=== PATIENT | female | born 1985 | race Caucasian/White ===

== ENCOUNTER 2020-01-04 09:58 | Inpatient (IN) | payer OTHER ==
[~2020-01-04] VITALS: Ht 167.6 cm; Wt 107.0 kg
[~2020-01-04 09:58] MED LIST: DSS100 PO; IBUP-2071 PO; PREN1TAB80 PO
[2020-01-04] MEDS ORDERED: RINGERS SOLUTION,LACTATED 1,000 ML IV PRN (10:05)
[2020-01-04] MEDS ORDERED: OXYGEN THERAPY IH SCH (10:15)
[2020-01-04] MEDS ORDERED: CITRIC ACID/SODIUM CITRATE 30 ML SOLUTION UDCUP PO PRN (10:15)
[2020-01-04] MEDS ORDERED: METOCLOPRAMIDE HCL 5 MG/ML 2 ML VIAL IVP PRN (10:15)
[2020-01-04] MEDS ORDERED: PREN-217 PO (10:33)
[2020-01-04] MEDS ORDERED: OXYM30SP27 NASAL (10:33)
[2020-01-04] MEDS ORDERED: LEVO125 PO (10:33)
[2020-01-04] MEDS ORDERED: DICL50TA9 PO (10:34)
[2020-01-04 10:46] VITALS: BP 122/71
[2020-01-04] MEDS ORDERED: RINGERS SOLUTION,LACTATED 1,000 ML IV SCH (11:33)
[2020-01-04] MEDS ORDERED: DOCU-275 PO (11:44)
[2020-01-04] MEDS ORDERED: MISOPROSTOL 25 MCG TABLET PO SCH (11:45)
[2020-01-04] MEDS ORDERED: MISOPROSTOL 50 MCG TABLET PEG SCH (11:45)
[2020-01-04 12:00] LABS: BASOPHILS % (AUTO) 0.4 % (0.0-2.0); EOSINOPHILS % (AUTO) 0.2 % (1.0-6.0); HEMATOCRIT 35.2 % (36-46); HEMOGLOBIN 11.8 g/dL (12.0-16.0); LYMPHOCYTES # (AUTO) 1.6 K/uL (1.0-4.8); MEAN CORPUSCULAR HEMOGLOBIN 29.7 pg (26.0-34.0); MEAN CORPUSCULAR HGB CONC 33.6 G/dL (31.0-37.0); MEAN CORPUSCULAR VOLUME 89 fL (80-100); MONOCYTES # (AUTO) 0.6 K/uL (0.1-1.0); MONOCYTES % (AUTO) 6.2 % (2.0-9.0); NEUTROPHILS # (AUTO) 6.9 K/uL (1.8-7.7); NEUTROPHILS % (AUTO) 75.2 % (40.0-70.0); PLATELET COUNT (AUTO)-OB 247 K/uL (150-450); RED BLOOD CELL COUNT(AUTO) 3.98 MIL/uL (4.00-5.20); RED CELL DISTRIBUTION WIDTH 15.6 % (11.5-14.5)
[2020-01-04] MEDS: RINGERS SOLUTION,LACTATED 1,000 ML IV SCH ×3 (12:01→22:17)
[2020-01-04] MEDS ORDERED: LIDOCAINE/PF 2% 5 ML VIAL ONE (15:44)
[2020-01-04] MEDS ORDERED: ROPIVACAINE HCL/PF 0.2% 100 ML ED ONE (15:44)
[2020-01-04] MEDS ORDERED: DiphenhydrAMINE HCL 50 MG/ML VIAL IVP PRN (16:00)
[2020-01-04] MEDS ORDERED: NALBUPHINE HCL 10 MG/ML VIAL IVP PRN (16:00)
[2020-01-04] MEDS ORDERED: ROPIVACAINE HCL/PF 0.2% 100 ML ED PRN (16:00)
[2020-01-04] MEDS ORDERED: ONDANSETRON HCL 4 MG/2 ML VIAL IVP PRN (16:00)
[2020-01-04] MEDS ORDERED: OXYTOCIN 30 UNITS/LACT RINGERS 500 ML IV PRN (16:28)
[2020-01-04] MEDS ORDERED: OXYTOCIN 30 UNITS/LACT RINGERS 500 ML IV ONE (18:39)
[2020-01-04] MEDS ORDERED: LIDOCAINE/PF 1% 30 ML VIAL INJ PRN (18:45)
[2020-01-04] MEDS ORDERED: FentaNYL CITRATE-PF 100 MCG/2 ML VIAL IVP PRN (18:45)
[2020-01-04] MEDS ORDERED: CARBOPROST TROMETHAMINE 250 MCG/ML AMP IM PRN (18:45)
[2020-01-04] MEDS ORDERED: METHYLERGONOVINE MALEATE 0.2 MG/ML VIAL IM PRN (18:45)
[2020-01-04] MEDS ORDERED: MINERAL OIL 30 ML UDCUP VG ONE (19:00)
[2020-01-05] MEDS: RINGERS SOLUTION,LACTATED 1,000 ML IV SCH (01:00)
[2020-01-05] MEDS ORDERED: RINGERS SOLUTION,LACTATED 1,000 ML IV ONE (02:58)
[2020-01-05] MEDS ORDERED: LANOLIN 7 GM OINTMENT TP PRN (03:00)
[2020-01-05] MEDS ORDERED: MEASLES/MUMPS/RUBELLA VACCINE, LIVE 0.5 ML/VIAL SQ ONE (03:00)
[2020-01-05] MEDS ORDERED: GLYCERIN/WITCH HAZEL LEAF 40 PADS JAR TP PRN (03:00)
[2020-01-05] MEDS ORDERED: BENZOCAINE 20%/MENTHOL 56 GM SPRAY CANISTER TP PRN (03:00)
[2020-01-05] MEDS: OxyCODONE HCL/ACETAMINOPHEN 5-325 MG TABLET PO PRN ×3 (03:33→15:42)
[2020-01-05] MEDS: IBUPROFEN 600 MG TABLET PO PRN ×3 (03:33→16:36)
[2020-01-05] MEDS: LEVOTHYROXINE SODIUM 125 MCG TABLET PO SCH (06:25)
[2020-01-05] MEDS: MAGNESIUM HYDROXIDE SUSPENSION 30 ML UDCUP PO SCH ×2 (10:00→21:52)
[2020-01-06] MEDS: IBUPROFEN 600 MG TABLET PO PRN ×2 (01:35→08:29)
[2020-01-06 05:27] LABS: BASOPHILS % (AUTO) 0.5 % (0.0-2.0); EOSINOPHILS % (AUTO) 1.3 % (1.0-6.0); HEMOGLOBIN 10.1 g/dL (12.0-16.0); LYMPHOCYTES # (AUTO) 2.2 K/uL (1.0-4.8); MEAN CORPUSCULAR HGB CONC 33.7 G/dL (31.0-37.0); MEAN CORPUSCULAR VOLUME 89 fL (80-100); MONOCYTES # (AUTO) 0.6 K/uL (0.1-1.0); MONOCYTES % (AUTO) 6.5 % (2.0-9.0); NEUTROPHILS # (AUTO) 6.9 K/uL (1.8-7.7); NEUTROPHILS % (AUTO) 69.7 % (40.0-70.0); PLATELET COUNT (AUTO)-OB 201 K/uL (150-450); RED BLOOD CELL COUNT(AUTO) 3.37 MIL/uL (4.00-5.20)
[2020-01-06] MEDS: LEVOTHYROXINE SODIUM 125 MCG TABLET PO SCH (05:59)
[2020-01-06] MEDS: OxyCODONE HCL/ACETAMINOPHEN 5-325 MG TABLET PO PRN (06:06)
[2020-01-06] MEDS: MAGNESIUM HYDROXIDE SUSPENSION 30 ML UDCUP PO SCH (08:32)
[2020-01-06] MEDS ORDERED: FERR-89 PO (09:44)
== END 2020-01-06 10:40 | disposition home or self-care (01) | DRG 807 ==
LOC: 4S 09:58 → OBSVTOIN 09:58
PROVIDERS: ADMIT Obstetrics & Gynecology; ATTEND Obstetrics & Gynecology
PROC: 10E0XZZ Delivery of Products of Conception, External Approach (ICD-10-PCS; principal; 2020-01-05)
PROC: 0KQM0ZZ Repair Perineum Muscle, Open Approach (ICD-10-PCS; 2020-01-05)
PROC: 3E0R3BZ Introduction of Anesthetic Agent into Spinal Canal, Percutaneous Approach (ICD-10-PCS; 2020-01-05)
PROC: 00HU33Z Insertion of Infusion Device into Spinal Canal, Percutaneous Approach (ICD-10-PCS; 2020-01-05)
DX: O70.1 Second degree perineal laceration during delivery (principal); Z37.0 Single live birth; Z3A.39 39 weeks gestation of pregnancy
CPT/HCPCS: 86850; 86900; 86901; J2590; J2795; J3490; J7120